=== PATIENT | male | born 2005 | race Two or more races ===

== ENCOUNTER 2025-05-08 | Emergency (ER) | payer OTHER, MEDICAID ==
[~2025-05-08] VITALS: Ht 165.1 cm; Wt 68.0 kg
[2025-05-08 00:06] VITALS: BP 154/96; PULSE 97; RESP 18; TEMP 98.4; O2SAT 98
[2025-05-08] MEDS ORDERED: CYCL-837 PO (00:18)
[2025-05-08] MEDS ORDERED: ACET500T58 PO (00:18)
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
[2025-05-08] MEDS: ACETAMINOPHEN 325 MG TAB PO ONE (00:23)
== END 2025-05-08 03:35 | disposition home or self-care (01) ==
LOC: ER
DX: S16.1XXA Strain of muscle, fascia and tendon at neck level, initial encounter (principal); R51.9 Headache, unspecified; V49.40XA Driver injured in collision with unspecified motor vehicles in traffic accident, initial encounter; Y93.89 Activity, other specified; Y92.410 Unspecified street and highway as the place of occurrence of the external cause; Y99.8 Other external cause status